=== PATIENT | female | born 1990 | race Caucasian/White ===

== ENCOUNTER → 2016-03-21 | Outpatient (CLI) | payer OTHER ==
--- NOTE | 2016-03-21 14:47 | US ---
EXAMINATION TYPE: US OB >= 14 wk fetus third trimester DATE OF EXAM: 03/21/2016 1:53 PM COMPARISON: First trimester ultrasound September 02, 2015. CLINICAL HISTORY: Large For Dates O36.63XO TECHNIQUE: Transabdominal (TA) GESTATIONAL AGE / DATING Physician Established: (35 weeks/1 days) EDC: 04/24/2016 Dates by LMP: unknown Dates by First Scan: (35 weeks/1 days) EDC: 04/24/2016 Dates by Current Scan: (36 weeks/1 days) EDC: 04/17/2016 SURVEY IUP: Single PLACENTA: Fundal PREVIA: No Previa DOLORES: 17.4cm CERVICAL LENGTH (transabdominal: norm > 3.0cm): 3.2cm BIOMETRY PRESENTATION: Vertex LIE: Longitudinal BPD: 8.9 cm 36 weeks / 1 days HC: 32.3 cm 36 weeks / 4 days AC: 32.2 cm 36 weeks / 1 days FL: 6.9 cm 35 weeks / 3 days ESTIMATED WEIGHT IN GRAMS: 2815 grams ESTIMATED WEIGHT IN LBS/OZS: 6 lbs. 3 oz. WEIGHT PERCENTAGE BASED ON ESTABLISHED DATES: 71 % HC/AC: 1.0 Normal FL/AC: 21 Normal HEART RATE: 133 bpm RHYTHM: Normal MATERNAL WALL MEASUREMENT: 4.6 cm from skin to anterior uterine wall (if exam limited due to body hab itus). TECHNOLOGIST IMPRESSION: Viable 36w1d fetus seen and appears wnl Amniotic fluid index is noted upper limits of normal. biometry measurements as above are within normal limits. There is no ultrasound evidence for placenta previa. Normal cephalad presentation to fetus is currently identified. IMPRESSION: As above.
== END | disposition home or self-care (01) ==
LOC: RADUSWWP 13:25
PROVIDERS: ATTEND Obstetrics & Gynecology
DX: O36.63X0 Maternal care for excessive fetal growth, third trimester, not applicable or unspecified (principal); Z3A.36 36 weeks gestation of pregnancy
CPT/HCPCS: 76805

== ENCOUNTER 2016-04-17 05:42 | Inpatient (IN) | payer OTHER ==
--- NOTE | 2016-04-13 13:06 | P.HPOB ---
History of Present Illness H&P Date: 04/13/16 Chief Complaint: Cesearan section and tubal ligation. This patient is a pleasant 26 yr female EDC 04/24/2016 EGA 39 weeks who presents to L&D for primary section and tubal ligation due to history of prior traumatic delivery. Patients last delivery was complicated by a clavicle fracture (9#9oz) and she has requested C/S for delivery. care has been uncomplicated. Review of Systems Constitutional: Denies chills, Denies fever Ears, nose, mouth and throat: Denies headache, Denies sore throat Respiratory: Denies cough Genitourinary: Reports Menstruation: Reports amenorrhea Musculoskeletal: Denies myalgias Integumentary: Denies pruritus, Denies rash Neurological: Denies numbness, Denies weakness Psychiatric: Denies anxiety, Denies depression Endocrine: Denies fatigue, Denies weight change Past Medical History Past Medical History: Thyroid Disorder Additional Past Medical History / Comment(s): migranes, anemia, low vitamin D, degenrative disc disease, migraines, 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 Past Anesthesia/Blood Transfusion Reactions: No Reported Reaction Past Psychological History: No Psychological Hx Reported Smoking Status: Current every day smoker Past Alcohol Use History: None Reported Past Drug Use History: None Reported - Past Family History Mother Family Medical History: GERD/Reflux, Hyperlipidemia, Hypertension, Thyroid Disorder Additional Family Medical History / Comment(s): anemia, hypothyroid, scoliosis, Father Family Medical History: Hypertension, Sleep Apnea/CPAP/BIPAP Medications and Allergies Home Medications Medication Instructions Recorded Confirmed Type Levothyroxine Sodium [Synthroid] 75 mcg PO DAILY 05/11/15 09/02/15 History Ferrous Gluconate 324 mg PO TID 09/02/15 09/02/15 History Allergies Allergy/AdvReac Type Severity Reaction Status Date / Time No Known Allergies Allergy Verified 09/02/15 18:47 Exam - OBG Physical Exam Abdomen: bowel sounds normal, no diffuse tenderness, no bruit present, no guarding noted, no hepatomegaly, no splenomegaly, no mass Vulva: both: normal Vagina: normal moisture, no discharge Cervix: Cervix in the office was closed. Cervix: no lesion, no discharge Uterus: enlarged (Fundal height is 43 cm.) Results labs: A positive, Rubella Low-Positive, HepB neg, RPR nonreactive, GBS was positive, Glucola was normal. Ultrasound have been normal. Assessment and Plan (1) Third trimester Narrative/Plan: This is a pleasant 26 yr female who is presenting for primary section for previous traumatic vaginal delivery. She is also requesting permanent sterilization. Plan is primary section and bilateral partial salpingectomy. She understands that a tubal ligation is permanent, has a failure rate of about 20-, and ~50% chance of ectopic or tubal if . She understands that surgery itself has risks: infection, bleeding, possible injury to bowel, bladder, vessels and/or other organs. All of her questions have been answered and a written consent is obtained. Status: Acute (2) delivery due to previous obstetrical trauma, delivered, current hospitalization Status: Acute (3) Family planning Status: Acute (4) Group B streptococcal carriage complicating Status: Acute
[2016-04-14 11:44] VITALS: BMI 46.9
[2016-04-17] MEDS ORDERED: LACTATED RINGERS 1,000 ML IV SCH (06:02)
[2016-04-17] MEDS ORDERED: CITRIC ACID-SODIUM CITRATE 15 ML CUP PO ONE (06:02)
[2016-04-17] MEDS ORDERED: LACTATED RINGERS 1,000 ML IV ONE (06:02)
[2016-04-17] MEDS ORDERED: ceFAZolin 3 GM in SODIUM CHLORIDE 0.9% 100 ML IVPB ONE (06:02)
[2016-04-17 06:29] LABS: Basophils % (A) 0 %; CH 28.1; CHCM 33.1; Eosinophils # (A) 0.1 k/uL (0-0.7); Eosinophils % (A) 1 %; HCT 31.8 % (34.0-46.0); HGB 10.5 gm/dL (11.4-16.0); Hypochromasia Slight; Luc # (Auto) 0.22; Luc % (Auto) 2; Lymphocytes % (A) 23 %; MCH 28.1 pg (25.0-35.0); MCHC 32.9 g/dL (31.0-37.0); MCV 85.4 fL (80.0-100.0); Mean Platelet Volume 7.5; Monocytes # (A) 0.4 k/uL (0-1.0); Monocytes % (A) 4 %; Neutrophils # (A) 6.3 k/uL (1.3-7.7); Neutrophils % (A) 70 %; RBC 3.73 m/uL (3.80-5.40); RDW 14.7 % (11.5-15.5); WBC (Perox) 9.61
[2016-04-17] MEDS ORDERED: ONDANSETRON 4 MG/2 ML VIAL ONE (07:44)
[2016-04-17] MEDS ORDERED: OXYTOCIN 10 UNIT/ML 1 ML VIAL IM ONE (07:44)
[2016-04-17] MEDS ORDERED: NALBUPHINE 10 MG/ML AMPUL ONE (07:44)
[2016-04-17] MEDS ORDERED: MORPHINE SULFATE (PF) 0.3 MG/0.3 ML SYR ONE (07:44)
[2016-04-17] MEDS ORDERED: KETOROLAC 30 MG/ML 1 ML VIAL ONE (07:44)
[2016-04-17] MEDS ORDERED: ZOLPIDEM 5 MG TAB PO PRN (08:41)
[2016-04-17] MEDS ORDERED: ONDANSETRON 4 MG/2 ML VIAL IVP PRN (08:41)
[2016-04-17] MEDS ORDERED: NALOXONE 0.4 MG/ML 1 ML VIAL IV PRN (08:41)
[2016-04-17] MEDS ORDERED: METOCLOPRAMIDE 5 MG/ML 2 ML VIAL IVP PRN (08:41)
[2016-04-17] MEDS ORDERED: OXYTOCIN 30 UNITS/500 ML NS 30 UNIT in SALINE 1 500ML.BAG IV SCH (08:41)
[2016-04-17] MEDS ORDERED: ACETAMINOPHEN TAB 325 MG TAB PO PRN (08:41)
[2016-04-17] MEDS ORDERED: diphenhydrAMINE 25 MG CAP PO PRN (08:41)
[2016-04-17] MEDS ORDERED: SIMETHICONE 80 MG CHEWABLE PO PRN (08:41)
[2016-04-17] MEDS ORDERED: MEASLES-MUMPS-RUBELLA VACC/PF 12,500 UNIT/0.5 ML VIAL SQ ONE (08:41)
[2016-04-17] MEDS ORDERED: Acetaminophen-Codeine 300-30mg TAB PO PRN (08:41)
--- NOTE | 2016-04-17 08:42 | P.OP ---
Date of Procedure: 04/17/16 Preoperative Diagnosis: #1: 39-0/7 week . #2: Previous traumatic vaginal delivery and desires . #3: Multi parity desires permanent sterilization. Postoperative Diagnosis: Same Procedure(s) Performed: Repeat low transverse section and bilateral partial salpingectomy Anesthesia: spinal Surgeon: Jaden Ruiz Manager Analysis #1: Franc Chance Estimated Blood Loss (ml): 600 Pathology: other (Placenta and bilateral fallopian tube segments) Condition: stable Disposition: floor Indications for Procedure: Please see dictated H&P for intimate details of this patient's admission. In brief summary this is a pleasant 26-year-old 7 para 3 female 39 weeks gestation who is presenting for requested section due to previous traumatic vaginal delivery. Patient is also requesting tubal ligation. Patient does understand that a tubal ligation is permanent, however there is a failure of approximately 20-25 per thousand procedures done. Patient also understands surgery itself has risks including risks of infection, bleeding, possible injury to bowel, bladder, vessels, and other organs. All the patient' s questions are answered and a written consent is obtained. Operative Findings: This was a vigorous viable male infant Apgars were 9 and 9 delivery time was 0807 hrs. Description of Procedure: This patient has a Howell catheter placed to straight drain. She is subsequently taken to the operating room where she is sat up and spinal anesthetic is administered without incident. With an adequate level of anesthesia she has abdominal prep and drape. Scalpels taken Pfannenstiel skin incision is then made. A second scalpel is taken down the fascia was scored with the scalpel. Fascial incision is extended bilaterally using Sapp scissors. Fascia is dissected sharply off the rectus muscles. The rectus muscles are and the peritoneum identified and entered sharply. Peritoneal incision extended superior and inferior without difficulty. The Surinder self-retaining retractor is then placed. Scalpel is taken low transverse uterine incision is then made. Using a hemostat I gently into the uterine cavity and there is a large amount of clear fluid. The infant's head is then guided through this incision. Mouth and nares are bulb suctioned. There is no evidence of a nuchal cord. With fundal pressure we then have deliver the anterior posterior shoulder and rest this 's body. This is a vigorous viable male Apgars are 9 and 9 delivery time was 0807 hrs. After delivery of the baby the umbilical cord is doubly clamped and cut appears to be trivascular. The placenta is manually extracted intact. Uterus is then externalized and the uterine incision demarcated with Miller clamps. Uterine incision is closed using 0 Vicryl running locked fashion in 2 layers. Excellent hemostasis is noted. I then turned my attention to the left fallopian tube and placing hemostat approximate 4 cm from the cornual insertion. Using Bovie cautery I make a small window in the mesial salpinx. Using a 2-0 silk I doubly ligate a piece of the tube on both sides. 1-2 cm segment tube was excised and handed off to pathology. Cauterization done of the tubal ends and good hemostasis is noted using a similar technique on the right side we have similar results. With this done excess fluid is removed from the pelvis. Uterus placed back into the abdomen. Parietal peritoneum was then closed using 0 Vicryl running fashion. The rectus muscles are reapproximated in 0 Vicryl interrupted fashion. Fascia is then closed using 0 PDS. Fascial incision is intact and hemostatic. Subcutaneous tissues reapproximated using a 3-0 Vicryl. Skin is and closed using angi. A sterile dressing is then applied. All counts are correct 3. There are no complications. Infant and mother are taken to the birthing suite in satisfactory condition.
[2016-04-17] MEDS: LACTATED RINGERS 1,000 ML IV SCH ×2 (09:49→17:27)
[2016-04-17] MEDS: SENNOSIDES-DOCUSATE SODIUM 1 EACH TAB PO SCH ×2 (09:50→23:23)
[2016-04-17] MEDS: diphenhydrAMINE 50 MG/ML 1 ML VIAL IVP PRN ×2 (11:38→17:32)
[2016-04-17] MEDS: KETOROLAC 30 MG/ML 1 ML VIAL IVP PRN (15:01)
[2016-04-18] MEDS: KETOROLAC 30 MG/ML 1 ML VIAL IVP PRN (00:25)
[2016-04-18] MEDS: SENNOSIDES-DOCUSATE SODIUM 1 EACH TAB PO SCH ×3 (00:34→19:49)
[2016-04-18] MEDS: IBUPROFEN 600 MG TAB PO PRN ×3 (00:34→19:49)
[2016-04-18] MEDS: LACTATED RINGERS 1,000 ML IV SCH (00:50)
--- NOTE | 2016-04-18 06:18 | P.PNOBGPC ---
Subjective - Subjective Patient reports: Reports appetite normal, Reports voiding normally, Reports pain well controlled, Reports ambulating normally : doing well Objective - Vital Signs Latest vital signs: Vital Signs Temp Pulse Resp BP Pulse Ox 04/18/16 04:00 98.8 F 87 16 103/61 98 04/18/16 00:00 98.5 F 88 18 93/41 98 04/17/16 19:34 98.4 F 95 18 117/54 98 04/17/16 17:01 98.6 F 108 H 16 99 04/17/16 15:00 98.6 F 81 16 101/45 04/17/16 10:35 96.4 F L 72 16 105/66 04/17/16 10:05 97.0 F L 77 16 113/66 99 04/17/16 09:35 81 16 101/59 04/17/16 09:20 74 16 96/55 97 04/17/16 09:05 97.0 F L 75 14 99/54 04/17/16 08:50 75 16 101/59 100 04/17/16 08:35 96.6 F L 80 16 96/55 100 04/17/16 06:20 95.9 F L 116 H 16 111/72 100 Intake and Output 04/17/16 04/17/16 04/18/16 14:59 22:59 06:59 Intake Total 200 500 Output Total 600 700 Balance -400 -200 Intake: IV 200 500 Lactated Ringers 1,000 ml 200 500 @ 125 mls/hr IV .Q8H MELO Rx#:[id number] Output: Urine 600 700 Straight 700 Other: # Bowel Movements 0 - Exam Lungs: bilateral: normal Chest: Normal S1, Normal S2 Extremities: Present: normal Abdomen: Present: normal appearance, soft. Absent: distention, tenderness Incision: Present: normal, dry, intact Uterus: Present: normal, firm - Labs Labs: Abnormal Lab Results - Last 24 Hours (Table) 04/17/16 Range/Units 06:17 RBC 3.73 L (3.80-5.40) m/uL Hgb 10.5 L (11.4-16.0) gm/dL Hct 31.8 L (34.0-46.0) % Assessment and Plan (1) Third trimester Narrative/Plan: Postoperative day #1. Patient is resting without complaints. Vital signs are stable she is afebrile. Her incision is intact and dry. Patient has had to be catheterized due to some urinary retention secondary to her Duramorph, otherwise without issues. Plan today is to advance to regular diet, encouraged patient ambulate, allow the patient to shower, and check a CBC. We will continue routine postoperative care. Current Visit: Yes Status: Acute Code(s): Z33.1 - STATE, INCIDENTAL SNOMED Code(s): 95659722 (2) delivery due to previous obstetrical trauma, delivered, current hospitalization Current Visit: Yes Status: Acute Code(s): O99.89 - OTH DISEASES AND CONDITIONS COMPL PREG/CHLDBRTH SNOMED Code(s): 237558438 (3) Family planning Current Visit: Yes Status: Acute Code(s): Z30.09 - ENCOUNTER FOR OTH GENERAL CNSL AND ADVICE ON CONTRACEPTION SNOMED Code(s): 89497574 (4) Group B streptococcal carriage complicating Current Visit: Yes Status: Acute Code(s): O99.820 - STREPTOCOCCUS B CARRIER STATE COMPLICATING SNOMED Code(s): 394296870122913
[2016-04-18 07:42] LABS: Basophils % (A) 1 %; CHCM 32.9; Eosinophils # (A) 0.1 k/uL (0-0.7); Eosinophils % (A) 1 %; HCT 26.4 % (34.0-46.0); HDW 3.19; Luc # (Auto) 0.14; Luc % (Auto) 2; Lymphocytes # (A) 1.6 k/uL (1.0-4.8); Lymphocytes % (A) 23 %; MCH 27.5 pg (25.0-35.0); MCHC 32.2 g/dL (31.0-37.0); MCV 85.6 fL (80.0-100.0); Mean Platelet Volume 8.1; Monocytes # (A) 0.3 k/uL (0-1.0); Monocytes % (A) 5 %; Neutrophils # (A) 4.7 k/uL (1.3-7.7); Neutrophils % (A) 68 %; RBC 3.08 m/uL (3.80-5.40); RDW 14.9 % (11.5-15.5); WBC 6.9 k/uL (3.8-10.6); WBC (Perox) 6.94
[2016-04-18 07:45] LABS: HGB 8.5 gm/dL (11.4-16.0)
[2016-04-18] MEDS: Acetaminophen-Codeine 300-30mg TAB PO PRN ×3 (08:02→23:34)
[2016-04-19] MEDS: IBUPROFEN 600 MG TAB PO PRN ×3 (03:41→18:22)
[2016-04-19] MEDS: Acetaminophen-Codeine 300-30mg TAB PO PRN ×3 (05:38→21:37)
--- NOTE | 2016-04-19 06:45 | P.PNOBGPC ---
Subjective - Subjective Patient reports: Reports appetite normal, Reports voiding normally, Reports pain well controlled, Reports ambulating normally : doing well Objective - Vital Signs Latest vital signs: Vital Signs Temp Pulse Resp BP Pulse Ox 04/19/16 00:00 97.9 F 93 18 106/60 04/18/16 20:00 98.1 F 90 18 105/77 97 04/18/16 08:10 97.8 F 81 18 99/58 100 Intake and Output 04/18/16 04/18/16 04/19/16 14:59 22:59 06:59 Output Total 800 300 Balance -800 -300 Output: Urine 800 300 Other: # Voids 1 1 2 # Bowel Movements 0 - Exam Lungs: bilateral: normal Chest: Normal S1, Normal S2 Extremities: Present: normal Abdomen: Present: normal appearance, soft. Absent: distention, tenderness Incision: Present: normal, dry, intact Uterus: Present: normal, firm - Labs Labs: Abnormal Lab Results - Last 24 Hours (Table) 04/18/16 Range/Units 07:07 RBC 3.08 L (3.80-5.40) m/uL Hgb 8.5 L D (11.4-16.0) gm/dL Hct 26.4 L (34.0-46.0) % Assessment and Plan (1) Third trimester Narrative/Plan: Postoperative day #2. Patient is resting without new complaints. Incision is intact and dry and she is having normal lochia. Postoperative hemoglobin was 8.5, but preoperative was 10.5. This is chronic anemia. Patient is tolerating regular diet, ambulating, and urinating without difficulty. My impression is a normal postoperative course. Plan is to continue routine postoperative care. I will resume her iron therapy. Current Visit: Yes Status: Acute Code(s): Z33.1 - STATE, INCIDENTAL SNOMED Code(s): 76301803 (2) delivery due to previous obstetrical trauma, delivered, current hospitalization Current Visit: Yes Status: Acute Code(s): O99.89 - OTH DISEASES AND CONDITIONS COMPL PREG/CHLDBRTH SNOMED Code(s): 320491133 (3) Family planning Current Visit: Yes Status: Acute Code(s): Z30.09 - ENCOUNTER FOR OTH GENERAL CNSL AND ADVICE ON CONTRACEPTION SNOMED Code(s): 92209232 (4) Group B streptococcal carriage complicating Current Visit: Yes Status: Acute Code(s): O99.820 - STREPTOCOCCUS B CARRIER STATE COMPLICATING SNOMED Code(s): 703218567239142
[2016-04-19] MEDS: SENNOSIDES-DOCUSATE SODIUM 1 EACH TAB PO SCH ×2 (07:29→20:05)
[2016-04-19] MEDS: IRON AG/C/B12/CA/SUC.ACID/STOM 1 EACH TAB PO SCH (11:39)
[2016-04-20] MEDS: IBUPROFEN 600 MG TAB PO PRN ×2 (01:17→08:16)
--- NOTE | 2016-04-20 06:04 | P.PNOBGPC ---
Subjective - Subjective Patient reports: Reports appetite normal, Reports voiding normally, Reports pain well controlled, Reports ambulating normally : doing well Objective - Vital Signs Latest vital signs: Vital Signs Temp Pulse Resp BP 04/20/16 00:00 98.0 F 78 14 94/70 04/19/16 16:00 98.1 F 98 16 126/74 04/19/16 08:00 98.5 F 93 16 104/63 - Exam Lungs: bilateral: normal Chest: Normal S1, Normal S2 Extremities: Present: normal Abdomen: Present: normal appearance, soft. Absent: distention, tenderness Incision: Present: normal, dry, intact Uterus: Present: normal, firm Assessment and Plan (1) Third trimester Narrative/Plan: Post operative day #3. Patient is resting without complaints. Vital signs are stable she's afebrile. Uterus is firm nontender and her incision is intact and dry. My impression normal post operative course. Plan is to continue routine postoperative care and discharge home later today. Current Visit: Yes Status: Acute Code(s): Z33.1 - STATE, INCIDENTAL SNOMED Code(s): 06170864 (2) delivery due to previous obstetrical trauma, delivered, current hospitalization Current Visit: Yes Status: Acute Code(s): O99.89 - OTH DISEASES AND CONDITIONS COMPL PREG/CHLDBRTH SNOMED Code(s): 105017764 (3) Family planning Current Visit: Yes Status: Acute Code(s): Z30.09 - ENCOUNTER FOR OTH GENERAL CNSL AND ADVICE ON CONTRACEPTION SNOMED Code(s): 46748300 (4) Group B streptococcal carriage complicating Current Visit: Yes Status: Acute Code(s): O99.820 - STREPTOCOCCUS B CARRIER STATE COMPLICATING SNOMED Code(s): 711867231904504
--- NOTE | 2016-04-20 06:10 | P.DS ---
Providers Date of admission: 04/17/16 05:42 Expected date of discharge: 04/20/16 Attending physician: Jaden Ruiz Primary care physician: Stated None - Discharge Diagnosis(es) (1) Third trimester Current Visit: Yes Status: Acute (2) delivery due to previous obstetrical trauma, delivered, current hospitalization Current Visit: Yes Status: Acute (3) Family planning Current Visit: Yes Status: Acute (4) Group B streptococcal carriage complicating Current Visit: Yes Status: Acute Hospital Course: Please see dictated H&P for intimate details of this patient's admission. Brief summary this pleasant 26-year-old 7 para 3 female 39 weeks gestation admitted to labor and delivery for elective section and tubal ligation. Patient goes above-named surgery and by postoperative 3 is doing well felt to be stable for discharge home follow up with me in 1 week. Procedures: Primary low transverse section and bilateral partial salpingectomy. Patient Condition at Discharge: Good Plan - Discharge Summary New Discharge Prescriptions: Acetaminophen-Codeine 300-30mg [Tylenol w/codeine #3] 1 - 2 each PO Q4HR PRN # 40 tab PRN Reason: Mild Pain Ibuprofen [Motrin] 600 mg PO Q6HR PRN #40 tab PRN Reason: Mild Pain Or Fever >= 100.5 Discharge Medication List Pediatric Multivit Comb #25/FA [Flintstones Multivit Chew Tab] 2 tab PO DAILY [History] Acetaminophen-Codeine 300-30mg [Tylenol w/codeine #3] 1 - 2 each PO Q4HR PRN # 40 tab 04/19/16 [Rx] Ibuprofen [Motrin] 600 mg PO Q6HR PRN #40 tab 04/19/16 [Rx] Follow up Appointment(s)/Referral(s): Jaden Ruiz MD [STAFF PHYSICIAN] - 1 Week (Patient also was to see me in 6 weeks for check.) Patient Instructions/Handouts: (DC) Activity/Diet/Wound Care/Special Instructions: No intercourse or anything per vagina for 6 weeks. No strenuous activity or heavy lifting for 6 weeks. Please call for any fever, chills, excessive vaginal bleeding, and/or abdominal pain. Discharge Disposition: HOME SELF-CARE
[2016-04-20] MEDS: SENNOSIDES-DOCUSATE SODIUM 1 EACH TAB PO SCH (08:11)
[2016-04-20] MEDS: IRON AG/C/B12/CA/SUC.ACID/STOM 1 EACH TAB PO SCH (08:15)
[2016-04-20 08:20] VITALS: BP 100/62; PULSE 86; RESP 16; TEMP 97.7
[2016-04-20] MEDS: Acetaminophen-Codeine 300-30mg TAB PO PRN (12:11)
== END 2016-04-20 14:20 | disposition home or self-care (01) | DRG 766 ==
LOC: 4FBP 05:42
PROVIDERS: ADMIT Obstetrics & Gynecology; ATTEND Obstetrics & Gynecology
PROC: 0UB70ZZ Excision of Bilateral Fallopian Tubes, Open Approach (ICD-10-PCS; 2016-04-17)
PROC: 10D00Z1 Extraction of Products of Conception, Low, Open Approach (ICD-10-PCS; principal; 2016-04-17 08:00)
DX: O99.824 Streptococcus B carrier state complicating childbirth (principal); E55.9 Vitamin D deficiency, unspecified; Z37.0 Single live birth; O99.02 Anemia complicating childbirth; O99.354 Diseases of the nervous system complicating childbirth; F17.200 Nicotine dependence, unspecified, uncomplicated; O99.334 Smoking (tobacco) complicating childbirth; D64.9 Anemia, unspecified; T50.995A Adverse effect of other drugs, medicaments and biological substances, initial encounter; O99.284 Endocrine, nutritional and metabolic diseases complicating childbirth; E07.9 Disorder of thyroid, unspecified; R33.9 Retention of urine, unspecified; O99.89 Other specified diseases and conditions complicating pregnancy, childbirth and the puerperium; Z3A.39 39 weeks gestation of pregnancy; Z82.49 Family history of ischemic heart disease and other diseases of the circulatory system; Y92.239 Unspecified place in hospital as the place of occurrence of the external cause
CPT/HCPCS: 85025; 86850; 86900; 86901; 88302; 88307; 90472; 90707

== ENCOUNTER → 2017-10-18 | Outpatient (CLI) | payer OTHER ==
--- NOTE | 2017-10-18 14:04 | MM ---
Reason for exam: clinical finding. Baseline mammogram. History: Family history of breast cancer in maternal grandmother at age 30 and breast cancer in mother at age 30. Physical Findings: Nurse did not find any significant physical abnormalities on exam. MG 3D Diag Mammo W/Cad GRACIELA Bilateral CC, MLO, and XCCL view(s) were taken. The breast tissue is almost entirely fat. There is no discrete abnormality including left upper outer quadrant. These results were verbally communicated with the patient and result sheet given to the patient on 10/18/17. ASSESSMENT: Benign, BI-RAD 2 RECOMMENDATION: Routine screening mammogram of both breasts at age 40.
== END | disposition home or self-care (01) ==
LOC: RADMAMWWP 12:38
PROVIDERS: ATTEND Family Medicine
DX: N63.20 Unspecified lump in the left breast, unspecified quadrant (principal)
CPT/HCPCS: 77066; G0279; 77062

== ENCOUNTER → 2017-12-25 | Outpatient (CLI) | payer OTHER ==
--- NOTE | 2017-12-25 11:48 | US ---
EXAMINATION TYPE: US transvaginal DATE OF EXAM: 12/25/2017 COMPARISON: CT, US CLINICAL HISTORY: n92.1Excessive and frequent menstruation with irre. Pt states abnormal vaginal blee ding, has been bleeding x 5 weeks, passing large clots TECHNIQUE: Transvaginal (TV). Transvaginal sonographic images of the pelvis were acquired. Date of LMP: Pt bleeding x 5 weeks EXAM MEASUREMENTS: Uterus: 7.4 x 4.5 x 5.7 cm Endometrial Stripe: 0.9 cm Right Ovary: 3.7 x 2.1 x 1.6 cm Left Ovary: 3.1 x 1.8 x 2.4 cm 1. Uterus: Retroverted Appeared wnl 2. Endometrium: Appeared wnl 3. Right Ovary: wnl, follicles 4. Left Ovary: wnl, follicles 5. Bilateral Adnexa: wnl 6. Posterior cul-de-sac: wnl No abnormality visualized to account for pt's symptoms IMPRESSION: 1. No acute process. Endometrial stripe measures 9 mm correlate with phase of the patient's menstrual 7.
== END | disposition home or self-care (01) ==
LOC: RADUSWWP 11:00
PROVIDERS: ATTEND Obstetrics & Gynecology
DX: N92.1 Excessive and frequent menstruation with irregular cycle (principal)
CPT/HCPCS: 76830

== ENCOUNTER 2019-12-19 00:57 | Emergency (ER) | payer OTHER ==
[2019-12-19 01:12] VITALS: TEMP 98
--- NOTE | 2019-12-19 01:32 | ED ---
Chest Pain HPI - General Chief Complaint: Chest Pain Stated Complaint: Chest Pain Time Seen by Provider: 12/19/19 01:15 Source: patient Mode of arrival: ambulatory Limitations: no limitations - History of Present Illness Initial Comments: his patient is a 29-year-old woman who presents to be evaluated for left-sided chest pain, palpitations, and anxiety. She states this ON ACUTELY TONIGHT AFTER SHE HAD AN ENERGY DRINK. MD Complaint: chest pain -: hour(s) Onset: during rest Pain Location: left chest Pain Radiation: none Severity: mild Quality: heaviness Consistency: constant Improves With: nothing Worsens With: nothing Other Symptoms: palpitations - Related Data Home Medications Medication Instructions Recorded Confirmed Pedi Multivit No.25/Folic Acid 2 tab PO DAILY 04/14/16 04/17/16 [Flintstones Multivit Chew Tab] Previous Rx's Medication Instructions Recorded Acetaminophen-Codeine 300-30mg 1 - 2 each PO Q4HR PRN #40 tab 04/19/16 [Tylenol w/codeine #3] Ibuprofen [Motrin] 600 mg PO Q6HR PRN #40 tab 04/19/16 Allergies Allergy/AdvReac Type Severity Reaction Status Date / Time No Known Allergies Allergy Verified 12/19/19 01:12 Review of Systems ROS Statement: Those systems with pertinent positive or pertinent negative responses have been documented in the HPI. ROS Other: All systems not noted in ROS Statement are negative. Constitutional: Denies: fever, chills Respiratory: Denies: cough, dyspnea Cardiovascular: Reports: chest pain, palpitations. Denies: dyspnea on exertion, orthopnea, edema, syncope Gastrointestinal: Denies: abdominal pain, nausea, vomiting Genitourinary: Denies: dysuria, hematuria Musculoskeletal: Denies: back pain Skin: Denies: rash Neurological: Denies: headache, weakness Psychiatric: Reports: anxiety EKG Findings - EKG Comments: EKG Findings:: similar to the comparison ECG. 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 Past Anesthesia/Blood Transfusion Reactions: No Reported Reaction Past Psychological History: No Psychological Hx Reported Smoking Status: Current every day smoker Past Alcohol Use History: None Reported Past Drug Use History: None Reported - Past Family History Mother Family Medical History: Deep Vein Thrombosis (DVT), GERD/Reflux, Hypertension, Thyroid Disorder Additional Family Medical History / Comment(s): anemia, hypothyroid Father Family Medical History: Hypertension, Sleep Apnea/CPAP/BIPAP General Exam Limitations: no limitations General appearance: alert, in no apparent distress, anxious Head exam: Present: atraumatic, normocephalic Eye exam: Present: normal appearance. Absent: scleral icterus, conjunctival injection ENT exam: Present: normal oropharynx Respiratory exam: Present: normal lung sounds bilaterally. Absent: respiratory distress, wheezes, rales, rhonchi, stridor Cardiovascular Exam: Present: regular rate, normal rhythm, normal heart sounds. Absent: systolic murmur, diastolic murmur, rubs, gallop GI/Abdominal exam: Present: soft. Absent: distended, tenderness, guarding, rebound, rigid, mass Extremities exam: Present: normal inspection, normal capillary refill. Absent: pedal edema, calf tenderness Back exam: Present: normal inspection. Absent: CVA tenderness (R), CVA tenderness (L) Neurological exam: Present: alert Skin exam: Present: warm, dry, intact, normal color. Absent: rash Course Vital Signs 12/19/19 12/19/19 01:09 01:27 Temperature 98 F Pulse Rate 112 H Pulse Rate [ 98 Java Web User Interface Developer ] Respiratory 18 Rate Blood Pressure 128/77 O2 Sat by Pulse 100 Oximetry Disposition Clinical Impression: Palpitations Disposition: HOME SELF-CARE Condition: Good Instructions (If sedation given, give patient instructions): Heart Palpitations (ED) Is patient prescribed a controlled substance at d/c from ED?: No Referrals: Miya Wilson MD [Primary Care Provider] - 1-2 days
--- NOTE | 2019-12-19 02:03 | XR ---
EXAM: XR Chest, 2 Views CLINICAL HISTORY: Chest pain TECHNIQUE: Frontal and lateral views of the chest. COMPARISON: No relevant prior studies available. FINDINGS: Lungs: Unremarkable. No infiltration, atelectasis or mass density. Pleural space: Unremarkable. No pneumothorax. No pleural fluid. Heart: Unremarkable. No cardiomegaly. Mediastinum: Unremarkable. Bones/joints: Unremarkable. No acute abnormalities. IMPRESSION: Negative chest x-rays.
[2019-12-19 02:44] VITALS: BP 96/71; PULSE 87; RESP 19
== END 2019-12-19 02:44 | disposition home or self-care (01) ==
LOC: EC 00:57
DX: R00.2 Palpitations (principal); R07.9 Chest pain, unspecified; F17.200 Nicotine dependence, unspecified, uncomplicated
CPT/HCPCS: 71046; 93005; 99285

== ENCOUNTER → 2020-03-31 | Outpatient (CLI) | payer OTHER ==
--- NOTE | 2020-04-26 11:47 | P.HOLTER ---
24 Hour Holter monitor note: Patient wore a Holter monitor for 24 hrs from 03/31/2020 until 04/01/2020. Findings: Patient's baseline heart rate was normal sinus rhythm. There were no signficant atrial fibrillation, atrial flutter, or ventricular tachycardia episodes. There were no significant pauses greater than 2 seconds. Patient's minimum heart rate was 64. Patient's maximum heart rate was 144. Patient's average heart rate was 93. There were rare PACs and otherwise no significant ectopy. No diary was submitted to correlate symptoms. Conclusions: Normal 24-hour Holter monitor with only PACs noted. No symptoms reported to correlate symptomatology.
== END | disposition home or self-care (01) ==
LOC: RADECHMAIN 12:16
PROVIDERS: ATTEND Family Medicine
DX: R00.2 Palpitations (principal); R53.83 Other fatigue
CPT/HCPCS: 93225; 93226

== ENCOUNTER 2021-04-23 06:29 | Emergency (ER) | payer OTHER ==
[2021-04-23 06:43] VITALS: TEMP 98.1
[2021-04-23] MEDS ORDERED: ONDANSETRON 4 MG/2 ML VIAL IVP STA ×2 (07:21→09:06)
[2021-04-23] MEDS ORDERED: PANTOPRAZOLE 40 MG/10 ML VIAL IVP STA (07:24)
--- NOTE | 2021-04-23 07:27 | ED ---
General Adult HPI - General Chief complaint: Abdominal Pain Stated complaint: Abd Pain, Vomiting Time Seen by Provider: 04/23/21 07:00 Source: patient, RN notes reviewed, old records reviewed Mode of arrival: ambulatory Limitations: no limitations - History of Present Illness Initial comments: this is a 31-year-old female who presents emergency Department stating at 4:30 is when she woke up with mid abdominal pain was up to her epigastric area. I asked if he went into her chest she said no it went up to the chest. Patient denies any chest pain. Patient denies any shortness of breath. Patient states she's not vomiting any food she stated she did vomit once. There was some bile and some small amount of blood. Patient states she's had cholecystectomy and a tubal ligation in the past. Patient denies any fever chills. Patient states the pain continues. Patient denies any history of pancreatitis. Patient states she's notably drinker. - Related Data Home Medications Medication Instructions Recorded Confirmed Pedi Multivit No.25/Folic Acid 2 tab PO DAILY 04/14/16 04/17/16 [Flintstones Multivit Chew Tab] Previous Rx's Medication Instructions Recorded Acetaminophen-Codeine 300-30mg 1 - 2 each PO Q4HR PRN #40 tab 04/19/16 [Tylenol w/codeine #3] Ibuprofen [Motrin] 600 mg PO Q6HR PRN #40 tab 04/19/16 Pantoprazole [Protonix] 40 mg PO DAILY #10 tab 04/23/21 Allergies Allergy/AdvReac Type Severity Reaction Status Date / Time codeine Allergy Rash/Hives Verified 04/23/21 06:43 Review of Systems ROS Statement: Those systems with pertinent positive or pertinent negative responses have been documented in the HPI. ROS Other: All systems not noted in ROS Statement are negative. 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 Past Anesthesia/Blood Transfusion Reactions: No Reported Reaction Past Psychological History: No Psychological Hx Reported Smoking Status: Former smoker Past Alcohol Use History: None Reported Past Drug Use History: None Reported - Past Family History Mother Family Medical History: Deep Vein Thrombosis (DVT), GERD/Reflux, Hypertension, Thyroid Disorder Additional Family Medical History / Comment(s): anemia, hypothyroid Father Family Medical History: Hypertension, Sleep Apnea/CPAP/BIPAP General Exam - General Exam Comments Initial Comments: GENERAL: Patient is well-developed and well-nourished. Patient is nontoxic and well- hydrated and is in mild distress. ENT: Neck is soft and supple. No significant lymphadenopathy is noted. Oropharynx is clear. Moist mucous membranes. Neck has full range of motion without eliciting any pain. EYES: The sclera were anicteric and conjunctiva were pink and moist. Extraocular movements were intact and pupils were equal round and reactive to light. Eyelids were unremarkable. PULMONARY: Unlabored respirations. Good breath sounds bilaterally. No audible rales rhonchi or wheezing was noted. CARDIOVASCULAR: There is a regular rate and rhythm without any murmurs gallops or rubs. ABDOMEN: Patient is mildly tender in the epigastric region SKIN: Skin is clear with no lesions or rashes and otherwise unremarkable. NEUROLOGIC: Patient is alert and oriented x3. Cranial nerves II through XII are grossly intact. Motor and sensory are also intact. Normal speech, volume and content. Symmetrical smile. MUSCULOSKELETAL: Normal extremities with adequate strength and full range of motion. LYMPHATICS: No significant lymphadenopathy is noted PSYCHIATRIC: Normal psychiatric evaluation. Limitations: no limitations Course Vital Signs 04/23/21 04/23/21 06:39 10:00 Temperature 98.1 F Pulse Rate 108 H 87 Respiratory 22 16 Rate Blood Pressure 117/78 93/54 O2 Sat by Pulse 98 96 Oximetry Medical Decision Making - Medical Decision Making patient had no episodes of vomiting in the emergency department. Patient remained stable sleeping most of the time the emergency department. Patient was sent home on Protonix she was given one dose of the emergency department IV. - Lab Data Result diagrams: 04/23/21 07:26 04/23/21 07:26 Lab Results 04/23/21 04/23/21 04/23/21 Range/Units 07:26 07:26 10:03 WBC 11.3 H (3.8-10.6) k/uL RBC 4.42 (3.80-5.40) m/uL Hgb 12.6 (11.4-16.0) gm/dL Hct 38.4 (34.0-46.0) % MCV 86.9 (80.0-100.0) fL MCH 28.6 (25.0-35.0) pg MCHC 33.0 (31.0-37.0) g/dL RDW 14.0 (11.5-15.5) % Plt Count 259 (150-450) k/uL MPV 7.1 Neutrophils % 86 % Lymphocytes % 7 % Monocytes % 5 % Eosinophils % 2 % Basophils % 0 % Neutrophils # 9.7 H (1.3-7.7) k/uL Lymphocytes # 0.7 L (1.0-4.8) k/uL Monocytes # 0.6 (0-1.0) k/uL Eosinophils # 0.2 (0-0.7) k/uL Basophils # 0.0 (0-0.2) k/uL Sodium 140 (137-145) mmol/L Potassium 4.1 (3.5-5.1) mmol/L Chloride 109 H (98-107) mmol/L Carbon Dioxide 21 L (22-30) mmol/L Anion Gap 10 mmol/L BUN 12 (7-17) mg/dL Creatinine 0.79 (0.52-1.04) mg/dL Est GFR (CKD-EPI)AfAm >90 (>60 ml/min/1.73 sqM) Est GFR (CKD-EPI)NonAf >90 (>60 ml/min/1.73 sqM) Glucose 99 (74-99) mg/dL Calcium 8.9 (8.4-10.2) mg/dL Total Bilirubin 0.4 (0.2-1.3) mg/dL AST 21 (14-36) U/L ALT 15 (4-34) U/L Alkaline Phosphatase 50 (38-126) U/L Total Protein 7.8 (6.3-8.2) g/dL Albumin 4.4 (3.5-5.0) g/dL Amylase 41 (30-110) U/L Lipase 107 (23-300) U/L Urine Color Yellow Urine Appearance Cloudy H (Clear) Urine pH 5.5 (5.0-8.0) Ur Specific [place] 1.025 (1.001-1.035) Urine Protein Trace H (Negative) Urine Glucose (UA) Negative (Negative) Urine Ketones Negative (Negative) Urine Blood Negative (Negative) Urine Nitrite Negative (Negative) Urine Bilirubin Negative (Negative) Urine Urobilinogen <2.0 (<2.0) mg/dL Ur Leukocyte Esterase Large H (Negative) Urine WBC 6 H (0-5) /hpf Ur Squamous Epith Cells 8 H (0-4) /hpf Amorphous Sediment Few H (None) /hpf Urine Bacteria Rare H (None) /hpf Urine Mucus Occasional H (None) /hpf Disposition Clinical Impression: Abdominal pain, Hematemesis Disposition: HOME SELF-CARE Instructions (If sedation given, give patient instructions): Abdominal Pain (ED) Prescriptions: Pantoprazole [Protonix] 40 mg PO DAILY #10 tab Is patient prescribed a controlled substance at d/c from ED?: No Referrals: Miya Wilson MD [Primary Care Provider] - 1-2 days Time of Disposition: 10:49
[2021-04-23 07:33] LABS: Basophils % (A) 0 %; Eosinophils # (A) 0.2 k/uL (0-0.7); Eosinophils % (A) 2 %; HCT 38.4 % (34.0-46.0); HGB 12.6 gm/dL (11.4-16.0); Lymphocytes # (A) 0.7 k/uL (1.0-4.8); Lymphocytes % (A) 7 %; MCH 28.6 pg (25.0-35.0); MCV 86.9 fL (80.0-100.0); Mean Platelet Volume 7.1; Monocytes # (A) 0.6 k/uL (0-1.0); Monocytes % (A) 5 %; Neutrophils # (A) 9.7 k/uL (1.3-7.7); Neutrophils % (A) 86 %; Platelet Count 259 k/uL (150-450); RBC 4.42 m/uL (3.80-5.40); WBC 11.3 k/uL (3.8-10.6)
[2021-04-23 07:44] LABS: ALT 15 U/L (4-34); AST 21 U/L (14-36); African American GFR (CKD) >90 (>60 ml/min/1.73 sqM); Albumin 4.4 g/dL (3.5-5.0); Alkaline Phosphatase 50 U/L (38-126); Amylase 41 U/L (30-110); Anion Gap 10 mmol/L; Blood Urea Nitrogen 12 mg/dL (7-17); Calcium 8.9 mg/dL (8.4-10.2); Carbon Dioxide 21 mmol/L (22-30); Chloride 109 mmol/L (98-107); Glucose 99 mg/dL (74-99); Lipase 107 U/L (23-300); Non-African American GFR(CKD) >90 (>60 ml/min/1.73 sqM); Potassium 4.1 mmol/L (3.5-5.1); Sodium 140 mmol/L (137-145); Total Bilirubin 0.4 mg/dL (0.2-1.3); Total Protein 7.8 g/dL (6.3-8.2)
--- NOTE | 2021-04-23 08:13 | XR ---
EXAMINATION TYPE: XR abdomen complete w decub DATE OF EXAM: 04/23/2021 COMPARISON: None HISTORY: Abdominal pain. TECHNIQUE: Supine, upright, and left side down lateral decubitus views of the abdomen are obtained. FINDINGS: The visualized lung bases are clear and there is no free air beneath the diaphragm. There is gas scattered throughout the colon and there are air-fluid levels within the right: The left lateral view. There is a mildly prominent loop of bowel within the central abdomen uncertain whether this represents mildly prominent small bowel or sigmoid colon. The possibility of an early or partia l small bowel obstruction is not excluded. There are no suspicious abdominal or pelvic calcifications. The osseous structures are intact. There post surgical changes of cholecystectomy. IMPRESSION: Cannot exclude early or partial small bowel obstruction. There is no free intraperitoneal air. Prior cholecystectomy.
[2021-04-23 10:35] LABS: Amorphous Sediment,Urine Few /hpf; Appearance,Urine Cloudy (Clear); Bacteria,Urine Rare /hpf; Bilirubin,Urine Negative (Negative); Blood,Urine Negative (Negative); Color,Urine Yellow; Glucose,Urine (UA) Negative (Negative); Ketones,Urine Negative (Negative); Leukocyte Esterase,Urine Large (Negative); Mucus,Urine Occasional /hpf; Nitrite,Urine Negative (Negative); PH, Urine 5.5 (5.0-8.0); Protein,Urine Trace (Negative); Specific Gravity,Urine 1.025 (1.001-1.035); Squamous Epithelial Cell,Urine 8 /hpf (0-4); Urobilinogen,Urine <2.0 mg/dL (<2.0); WBC,Urine 6 /hpf (0-5)
[2021-04-23 10:47] VITALS: BP 93/54; PULSE 87; RESP 16
== END 2021-04-23 11:05 | disposition home or self-care (01) ==
LOC: EC 06:29
DX: R10.9 Unspecified abdominal pain (principal); K92.0 Hematemesis; Z87.891 Personal history of nicotine dependence; Z90.49 Acquired absence of other specified parts of digestive tract; Z88.5 Allergy status to narcotic agent
CPT/HCPCS: 36415; 80053; 82150; 83690; 85025; 81001; 74021; 99284; 96374; 96376; 96375; J2405; C9113

== ENCOUNTER 2021-09-25 22:41 | Emergency (ER) | payer OTHER ==
[2021-09-25] MEDS ORDERED: SODIUM CHLORIDE 0.9% 2,000 ML IV STA (23:57)
[2021-09-25] MEDS ORDERED: KETOROLAC 15 MG/ML 1 ML VIAL IVP STA (23:57)
[2021-09-25] MEDS ORDERED: ACETAMINOPHEN TAB 500 MG TAB PO STA (23:58)
--- NOTE | 2021-09-26 00:16 | ED ---
General Adult HPI - General Chief complaint: Upper Respiratory Infection Stated complaint: Kidney Pain Time Seen by Provider: 09/25/21 23:10 Source: patient, RN notes reviewed Mode of arrival: ambulatory Limitations: no limitations - History of Present Illness Initial comments: Patient presents to the right arm was shaking chills, back pain, nausea, sore throat and cough. Patient states that going on for a few days. Patient states most of her pain is in her back. Patient denying any abdominal pain. Patient states she does have a history of recurrent urinary tract infections. No immunosuppression. No productive cough. No hemoptysis. No nausea or vomiting. Change in bowel movements. Patient did have a T-max greater than 102F at home. no changes in vision or hearing, no ear pain, sinus pain, difficulty with speec h, no neck pain, no chest pain or shortness of breath, no abdominal pain, no nausea or vomiting, no changes in urination or bowel movements, no numbness or tingling, no extremity pain, no skin rashes or lesions. Past medical, surgical, social, and family history reviewed. - Related Data Home Medications Medication Instructions Recorded Confirmed Pedi Multivit No.25/Folic Acid 2 tab PO DAILY 04/14/16 04/17/16 [Flintstones Multivit Chew Tab] Previous Rx's Medication Instructions Recorded Acetaminophen-Codeine 300-30mg 1 - 2 each PO Q4HR PRN #40 tab 04/19/16 [Tylenol w/codeine #3] Ibuprofen [Motrin] 600 mg PO Q6HR PRN #40 tab 04/19/16 Pantoprazole [Protonix] 40 mg PO DAILY #10 tab 04/23/21 Allergies Allergy/AdvReac Type Severity Reaction Status Date / Time codeine Allergy Rash/Hives Verified 09/25/21 23:08 Review of Systems ROS Statement: Those systems with pertinent positive or pertinent negative responses have been documented in the HPI. ROS Other: All systems not noted in ROS Statement are negative. 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 Past Anesthesia/Blood Transfusion Reactions: No Reported Reaction Past Psychological History: No Psychological Hx Reported Smoking Status: Former smoker Past Alcohol Use History: None Reported Past Drug Use History: None Reported - Past Family History Mother Family Medical History: Deep Vein Thrombosis (DVT), GERD/Reflux, Hypertension, Thyroid Disorder Additional Family Medical History / Comment(s): anemia, hypothyroid Father Family Medical History: Hypertension, Sleep Apnea/CPAP/BIPAP General Exam - General Exam Comments Initial Comments: Appears to have some Reiger's at the time I'm assessing her. However vital signs are within the normal limits. Patient appears to have adequate peripheral perfusion with capillary refill less than 2 seconds and no mottling. Moist mucous membranes. Limitations: no limitations General appearance: alert, in no apparent distress Head exam: Present: atraumatic, normocephalic, normal inspection Eye exam: Present: normal appearance, PERRL, EOMI. Absent: scleral icterus, conjunctival injection, periorbital swelling ENT exam: Present: normal exam, normal oropharynx, mucous membranes dry, mucous membranes moist, TM's normal bilaterally, normal external ear exam Expanded Mouth exam: Present: normal external inspection, tongue normal. Absent: drooling, trismus, muffled voice, tongue elevation, laceration Teeth exam: Present: normal inspection. Absent: dental caries Throat exam: normal inspection. negative: tonsillar erythema, tonsillomegaly, tonsillar exudate, R peritonsillar mass, L peritonsillar mass Neck exam: Present: normal inspection, full ROM. Absent: tenderness, meningismus, lymphadenopathy Respiratory exam: Present: normal lung sounds bilaterally. Absent: respiratory distress, wheezes, rales, rhonchi, stridor Cardiovascular Exam: Present: regular rate, normal rhythm, normal heart sounds. Absent: systolic murmur, diastolic murmur, rubs, gallop, clicks GI/Abdominal exam: Present: soft, normal bowel sounds. Absent: distended, tenderness, guarding, rebound, rigid External exam: Present: other (Examination deferred by patient) Extremities exam: Present: normal inspection, full ROM, normal capillary refill. Absent: tenderness, pedal edema, joint swelling, calf tenderness Back exam: Present: normal inspection, full ROM, CVA tenderness (R), CVA tenderness (L). Absent: tenderness, muscle spasm, rash noted Neurological exam: Present: alert, oriented X3, CN II-XII intact Psychiatric exam: Present: normal affect, normal mood Skin exam: Present: warm, dry, intact, normal color. Absent: rash Course Vital Signs 09/25/21 09/26/21 09/26/21 23:06 02:38 03:00 Temperature 98.7 F 98.6 F Pulse Rate 95 102 H 101 H Respiratory 18 16 18 Rate Blood Pressure 121/62 114/73 104/57 O2 Sat by Pulse 100 98 98 Oximetry - Reevaluation(s) Reevaluation #1: 09/26/21 03:22 Medical record is reviewed Symptoms are improved here in the emergency department Patient is informed of results and questions answered Patient in no distress Medical Decision Making - Medical Decision Making Given the patient's symptomology, pyelonephritis is within the differential. Does not appear to be consistent with ureteral colic as there is no flank pain radiating around to the front. Patient has had shaking chills and a cough. Viral syndrome also within the differential. [address] Patient previo usly has had a tubal ligation. We'll work the patient up for infectious etiology and plan for reevaluation. Note that the patient has no abdominal tenderness. Rash actually tested negative for COVID-19. Patient's computed tomography scan was negative for evidence of kidney pathology, there was no ureteral stone. Patient's urinalysis did not appear to be consistent with urinary tract infection. Patient's influenza A and streptococcal testing were pending. However the patient did not want to wait for this. Patient symptomology consistent with viral syndrome. Antipyretics. Patient concurs with this treatment plan. We did discuss the possibly of false-negative COVID-19 testing. Patient did have a mild elevation of the white blood cell count which was nonspecific. Patient denied any possibility of sexually transmitted disease, no vaginal discharge. Deferring the pelvic examination. There was a small amount of fluid seen on computed tomography scan which may be physiologic. The case was discussed in detail with ED attending physician. Presentation, findings, treatment plan discussed in detail. Patient was told to return to the ER for any signs or symptoms worsen. Told to return immediately if any other problems arise. All questions answered. Treatment plan discussed. Patient in agreement Every effort has been made to ensure accuracy of this dictation. However, due to the limitations of electronic medical records and dictation devices, errors in charting still occur. Snow Maker Dr. Smith - Lab Data Result diagrams: 09/26/21 02:19 09/26/21 02:19 Lab Results 09/25/21 09/26/21 09/26/21 Range/Units 23:09 00:04 02:19 WBC 12.4 H (3.8-10.6) k/uL RBC 4.39 (3.80-5.40) m/uL Hgb 11.7 (11.4-16.0) gm/dL Hct 36.6 (34.0-46.0) % MCV 83.5 (80.0-100.0) fL MCH 26.7 (25.0-35.0) pg MCHC 32.0 (31.0-37.0) g/dL RDW 14.9 (11.5-15.5) % Plt Count 299 (150-450) k/uL MPV 7.2 Neutrophils % 82 % Lymphocytes % 12 % Monocytes % 4 % Eosinophils % 1 % Basophils % 0 % Neutrophils # 10.1 H (1.3-7.7) k/uL Lymphocytes # 1.5 (1.0-4.8) k/uL Monocytes # 0.5 (0-1.0) k/uL Eosinophils # 0.1 (0-0.7) k/uL Basophils # 0.0 (0-0.2) k/uL Hypochromasia Slight Sodium (137-145) mmol/L Potassium (3.5-5.1) mmol/L Chloride (98-107) mmol/L Carbon Dioxide (22-30) mmol/L Anion Gap mmol/L BUN (7-17) mg/dL Creatinine (0.52-1.04) mg/dL Est GFR (CKD-EPI)AfAm (>60 ml/min/1.73 sqM) Est GFR (CKD-EPI)NonAf (>60 ml/min/1.73 sqM) Glucose (74-99) mg/dL Plasma Lactic Acid Rai (0.7-2.0) mmol/L Calcium (8.4-10.2) mg/dL Total Bilirubin (0.2-1.3) mg/dL AST (14-36) U/L ALT (4-34) U/L Alkaline Phosphatase (38-126) U/L Total Protein (6.3-8.2) g/dL Albumin (3.5-5.0) g/dL Urine Color Light Yellow Urine Appearance Clear (Clear) Urine pH 6.0 (5.0-8.0) Ur Specific [place] 1.022 (1.001-1.035) Urine Protein Negative (Negative) Urine Glucose (UA) Negative (Negative) Urine Ketones Negative (Negative) Urine Blood Negative (Negative) Urine Nitrite Negative (Negative) Urine Bilirubin Negative (Negative) Urine Urobilinogen <2.0 (<2.0) mg/dL Ur Leukocyte Esterase Small H (Negative) Urine RBC 3 (0-5) /hpf Urine WBC 3 (0-5) /hpf Ur Squamous Epith Cells 4 (0-4) /hpf Amorphous Sediment Rare H (None) /hpf Urine Mucus Rare H (None) /hpf Coronavirus (PCR) Not Detected (Not Detectd) Influenza Type A RNA (Not Detectd) Influenza Type B (PCR) (Not Detectd) 09/26/21 09/26/21 09/26/21 Range/Units 02:19 02:19 02:38 WBC (3.8-10.6) k/uL RBC (3.80-5.40) m/uL Hgb (11.4-16.0) gm/dL Hct (34.0-46.0) % MCV (80.0-100.0) fL MCH (25.0-35.0) pg MCHC (31.0-37.0) g/dL RDW (11.5-15.5) % Plt Count (150-450) k/uL MPV Neutrophils % % Lymphocytes % % Monocytes % % Eosinophils % % Basophils % % Neutrophils # (1.3-7.7) k/uL Lymphocytes # (1.0-4.8) k/uL Monocytes # (0-1.0) k/uL Eosinophils # (0-0.7) k/uL Basophils # (0-0.2) k/uL Hypochromasia Sodium 136 L (137-145) mmol/L Potassium 4.9 (3.5-5.1) mmol/L Chloride 103 (98-107) mmol/L Carbon Dioxide 19 L (22-30) mmol/L Anion Gap 14 mmol/L BUN 16 (7-17) mg/dL Creatinine 0.69 (0.52-1.04) mg/dL Est GFR (CKD-EPI)AfAm >90 (>60 ml/min/1.73 sqM) Est GFR (CKD-EPI)NonAf >90 (>60 ml/min/1.73 sqM) Glucose 96 (74-99) mg/dL Plasma Lactic Acid Rai 1.0 (0.7-2.0) mmol/L Calcium 9.4 (8.4-10.2) mg/dL Total Bilirubin 0.4 (0.2-1.3) mg/dL AST 25 (14-36) U/L ALT 18 (4-34) U/L Alkaline Phosphatase 68 (38-126) U/L Total Protein 8.0 (6.3-8.2) g/dL Albumin 4.8 (3.5-5.0) g/dL Urine Color Urine Appearance (Clear) Urine pH (5.0-8.0) Ur Specific [place] (1.001-1.035) Urine Protein (Negative) Urine Glucose (UA) (Negative) Urine Ketones (Negative) Urine Blood (Negative) Urine Nitrite (Negative) Urine Bilirubin (Negative) Urine Urobilinogen (<2.0) mg/dL Ur Leukocyte Esterase (Negative) Urine RBC (0-5) /hpf Urine WBC (0-5) /hpf Ur Squamous Epith Cells (0-4) /hpf Amorphous Sediment (None) /hpf Urine Mucus (None) /hpf Coronavirus (PCR) (Not Detectd) Influenza Type A RNA Not Detected (Not Detectd) Influenza Type B (PCR) Not Detected (Not Detectd) - Radiology Data Radiology results: report reviewed, image reviewed Disposition Clinical Impression: Acute viral syndrome Disposition: HOME SELF-CARE Condition: Good Instructions (If sedation given, give patient instructions): Viral Syndrome (ED) Additional Instructions: Alternate acetaminophen and ibuprofen for fever control. Follow-up with your regular physician within 48 hours for recheck. Return immediately to the emergency department if any symptoms worsen. Is patient prescribed a controlled substance at d/c from ED?: No Referrals: Miya Wilson MD [Primary Care Provider] - 1-2 days Time of Disposition: 03:25
--- NOTE | 2021-09-26 00:39 | XR ---
EXAMINATION TYPE: XR chest 2V DATE OF EXAM: 09/26/2021 COMPARISON: 12/19/2019 HISTORY: Cough TECHNIQUE: FINDINGS: Heart and mediastinum are normal. Lungs are clear. Diaphragm is normal. Bony thorax appears normal. IMPRESSION: Normal chest. No change.
[2021-09-26 00:46] LABS: Amorphous Sediment,Urine Rare /hpf; Appearance,Urine Clear (Clear); Bilirubin,Urine Negative (Negative); Blood,Urine Negative (Negative); Color,Urine Light Yellow; Glucose,Urine (UA) Negative (Negative); Ketones,Urine Negative (Negative); Leukocyte Esterase,Urine Small (Negative); Mucus,Urine Rare /hpf; Nitrite,Urine Negative (Negative); Protein,Urine Negative (Negative); RBC,Urine 3 /hpf (0-5); Specific Gravity,Urine 1.022 (1.001-1.035); Squamous Epithelial Cell,Urine 4 /hpf (0-4); Urobilinogen,Urine <2.0 mg/dL (<2.0); WBC,Urine 3 /hpf (0-5)
[2021-09-26 02:39] VITALS: TEMP 98.6
[2021-09-26 02:39] LABS: Basophils % (A) 0 %; Eosinophils # (A) 0.1 k/uL (0-0.7); Eosinophils % (A) 1 %; HCT 36.6 % (34.0-46.0); HGB 11.7 gm/dL (11.4-16.0); Hypochromasia Slight; Lymphocytes # (A) 1.5 k/uL (1.0-4.8); Lymphocytes % (A) 12 %; MCH 26.7 pg (25.0-35.0); MCV 83.5 fL (80.0-100.0); Mean Platelet Volume 7.2; Monocytes # (A) 0.5 k/uL (0-1.0); Monocytes % (A) 4 %; Neutrophils # (A) 10.1 k/uL (1.3-7.7); Neutrophils % (A) 82 %; Platelet Count 299 k/uL (150-450); RBC 4.39 m/uL (3.80-5.40); RDW 14.9 % (11.5-15.5); WBC 12.4 k/uL (3.8-10.6)
--- NOTE | 2021-09-26 02:40 | CT ---
EXAMINATION TYPE: CT abdomen wo con DATE OF EXAM: 09/26/2021 COMPARISON: 07/06/2009 HISTORY: fever, back pain, nausea CT DLP: 1744 mGycm Automated exposure control for dose reduction was used. Images obtained from the diaphragm to the floor the pelvis with no contrast. The lung bases are clear. No pleural effusion. Heart size is normal. No pericardial effusion. There are clips from cholecystectomy. Liver spleen stomach pancreas appear intact. The bile ducts are not dilated. There is no adrenal mass. Kidneys have normal size and contour. No hydronephrosis. Ureters are not di lated. There is no retroperitoneal adenopathy. Appendix is inferior and appears normal. The bladder d istends smoothly. There is small amount of low-density free fluid in the pelvis. Uterus is retroverte d. No pelvic mass. No inguinal hernia. There is no mesenteric edema. No ascites or free air. No sign of a bowel obstruction. Lumbar spine is intact. Bony pelvis is intact. The hip joints are intact. IMPRESSION: There is small amount of low-density fluid in the pelvis that could be physiologic. Otherwise negativ e CT scan of the abdomen and pelvis..
[2021-09-26 02:57] LABS: ALT 18 U/L (4-34); AST 25 U/L (14-36); African American GFR (CKD) >90 (>60 ml/min/1.73 sqM); Albumin 4.8 g/dL (3.5-5.0); Alkaline Phosphatase 68 U/L (38-126); Anion Gap 14 mmol/L; Blood Urea Nitrogen 16 mg/dL (7-17); Calcium 9.4 mg/dL (8.4-10.2); Carbon Dioxide 19 mmol/L (22-30); Chloride 103 mmol/L (98-107); Glucose 96 mg/dL (74-99); Non-African American GFR(CKD) >90 (>60 ml/min/1.73 sqM); Potassium 4.9 mmol/L (3.5-5.1); Sodium 136 mmol/L (137-145); Total Bilirubin 0.4 mg/dL (0.2-1.3)
[2021-09-26 03:01] VITALS: BP 104/57; RESP 18
[2021-09-26 03:36] VITALS: PULSE 89
== END 2021-09-26 03:37 | disposition home or self-care (01) ==
LOC: EC 22:41
DX: B34.9 Viral infection, unspecified (principal); M54.9 Dorsalgia, unspecified; D72.829 Elevated white blood cell count, unspecified; Z20.822 Contact with and (suspected) exposure to COVID-19; Z87.891 Personal history of nicotine dependence; Z90.49 Acquired absence of other specified parts of digestive tract; Z88.5 Allergy status to narcotic agent; Z87.440 Personal history of urinary (tract) infections
CPT/HCPCS: 99284 ×2; 96374 ×2; 96361 ×2; 36415; 80053; 83605; 85025; 81001; 87040; 87081; 87430; 87502; 87635; 71046; 74150; J1885

== ENCOUNTER 2022-12-21 03:32 | Emergency (ER) | payer OTHER ==
[2022-12-21 03:42] VITALS: TEMP 98.4
[2022-12-21] MEDS ORDERED: SODIUM CHLORIDE 0.9% 1,000 ML IV STA (04:37)
[2022-12-21] MEDS ORDERED: PROCHLORPERAZINE INJ 10 MG/2 ML VIAL IVP STA (04:37)
--- NOTE | 2022-12-21 04:37 | ED ---
Nausea/Vomiting/Diarrhea HPI - General Chief complaint: Nausea/Vomiting/Diarrhea Stated complaint: Diarrhea, Abdominal Pain Time Seen by Provider: 12/21/22 04:11 Source: patient, RN notes reviewed, old records reviewed Mode of arrival: ambulatory Limitations: no limitations - History of Present Illness Initial comments: This is a 32-year-old female to the emergency department for evaluation today. Patient resents today for evaluation regards to nausea vomiting diarrhea. Symptoms began after starting antibiotics today for bronchitis. Patient feels weak and dehydrated. No other complaints no fevers no travel history no sick contacts no blood in the vomit or stool MD complaint: nausea, vomiting, diarrhea -: hour(s) Description of Vomiting: food contents Description of Diarrhea: water Associated Abdominal Pain: Yes Location: diffuse Radiation: none Severity: moderate Severity scale (1-10): 4 Consistency: constant Improves with: none Worsens with: none Associated Symptoms: loss of appetite, nausea/vomiting, weakness - Related Data Home Medications Medication Instructions Recorded Confirmed Pedi Multivit No.25/Folic Acid 2 tab PO DAILY 04/14/16 04/17/16 [Flintstones Multivit Chew Tab] Previous Rx's Medication Instructions Recorded Acetaminophen-Codeine 300-30mg 1 - 2 each PO Q4HR PRN #40 tab 04/19/16 [Tylenol w/codeine #3] Ibuprofen [Motrin] 600 mg PO Q6HR PRN #40 tab 04/19/16 Pantoprazole [Protonix] 40 mg PO DAILY #10 tab 04/23/21 Allergies Allergy/AdvReac Type Severity Reaction Status Date / Time codeine Allergy Rash/Hives Verified 12/21/22 03:37 Review of Systems ROS Statement: Those systems with pertinent positive or pertinent negative responses have been documented in the HPI. ROS Other: All systems not noted in ROS Statement are negative. 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 Past Anesthesia/Blood Transfusion Reactions: No Reported Reaction Past Psychological History: No Psychological Hx Reported Smoking Status: Former smoker Past Alcohol Use History: None Reported Past Drug Use History: None Reported - Past Family History Mother Family Medical History: Deep Vein Thrombosis (DVT), GERD/Reflux, Hypertension, Thyroid Disorder Additional Family Medical History / Comment(s): anemia, hypothyroid Father Family Medical History: Hypertension, Sleep Apnea/CPAP/BIPAP General Exam Limitations: no limitations General appearance: alert, in no apparent distress Head exam: Present: atraumatic, normocephalic, normal inspection Eye exam: Present: normal appearance, PERRL, EOMI. Absent: scleral icterus, conjunctival injection, periorbital swelling ENT exam: Present: normal exam, mucous membranes moist Neck exam: Present: normal inspection. Absent: tenderness, meningismus, lymphadenopathy Respiratory exam: Present: normal lung sounds bilaterally. Absent: respiratory distress, wheezes, rales, rhonchi, stridor Cardiovascular Exam: Present: regular rate, normal rhythm, normal heart sounds. Absent: systolic murmur, diastolic murmur, rubs, gallop, clicks GI/Abdominal exam: Present: soft, normal bowel sounds. Absent: distended, tenderness, guarding, rebound, rigid Extremities exam: Present: normal inspection, full ROM, normal capillary refill. Absent: tenderness, pedal edema, joint swelling, calf tenderness Back exam: Present: normal inspection Neurological exam: Present: alert, oriented X3, CN II-XII intact Psychiatric exam: Present: normal affect, normal mood Skin exam: Present: warm, dry, intact, normal color. Absent: rash Course Vital Signs 12/21/22 12/21/22 03:34 05:26 Temperature 98.4 F Pulse Rate 120 H 102 H Respiratory 20 18 Rate Blood Pressure 96/67 117/74 O2 Sat by Pulse 99 98 Oximetry - Reevaluation(s) Reevaluation #1: 12/21/22 05:31 Medical record is reviewed Reevaluation #2: 12/21/22 05:32 Patient symptoms improved Reevaluation #3: 12/21/22 05:32 Patient informed results questions answered Reevaluation #4: 12/21/22 05:32 Was pt. sent in by a medical professional or institution (, PA, DIETITIAN CHIEF, urgent care, hospital, or fpc...) When possible be specific @ -no Did you speak to anyone other than the patient for history (EMS, parent, family, police, friend...)? What history was obtained from this source @ -no Did you review nursing and triage notes (agree or disagree)? Why? @ -agree Are old charts reviewed (outside hosp., previous admission, EMS record, old EKG, old radiological studies, urgent care reports/EKG's, fpc records)? Report findings @ -yes Differential Diagnosis (chest pain, altered mental status, abdominal pain women, abdominal pain men, vaginal bleeding, weakness, fever, dyspnea, syncope, head ache, dizziness, GI bleed, back pain, seizure, CVA, palpatations, mental health, musculoskeletal)? @ -prior EKG interpreted by me (3pts min.). @ -no X-rays interpreted by me (1pt min.). @ -no CT interpreted by me (1pt min.). @ -no U/S interpreted by me (1pt. min.). @ -no What testing was considered but not performed or refused? (CT, X-rays, U/S, labs)? Why? @ -none What meds were considered but not given or refused? Why? @ -none Did you discuss the management of the patient with other professionals (professionals i.e. , PA, DIETITIAN CHIEF, lab, RT, psych nurse, 7th grade social studies teacher, podiatrist, teacher, forward air controller/air officer, vocational case manager)? Give summary @ -no Was smoking cessation discussed for >3mins.? @ -no Was critical care preformed (if so, how long)? @ -no Were there social determinants of health that impacted care today? How? (Homelessness, low income, unemployed, alcoholism, drug addiction, trans portation, low edu. Level, literacy, decrease access to med. care, [place] [facility], rehab)? @ -none Was there de-escalation of care discussed even if they declined (Discuss DNR or withdrawal of care, Hospice)? DNR status @ -no What co-morbidities impacted this encounter? (DM, HTN, Smoking, COPD, CAD, Cancer, CVA, ARF, Chemo, Hep., AIDS, mental health diagnosis, sleep apnea, morbid obesity)? @ -none Was patient admitted / discharged? Hospital course, mention meds given and route, prescriptions, significant lab abnormalities, going to OR and other pertinent info. @ - 32 female to the emergency department for evaluation today. Patient presents today for evaluation regards to weakness dehydration nausea vomiting and diarrhea. Symptoms improved here in the ER patient feels well and can be discharged home Discharge Undiagnosed new problem with uncertain prognosis? @ -no Drug Therapy requiring intensive monitoring for toxicity (Heparin, Nitro, Insulin, Cardizem)? @ -no Were any procedures done? @ -no Diagnosis/symptom? @ -Nausea vomiting diarrhea and dehydration Acute, or Chronic, or Acute on Chronic? @ -Acute Uncomplicated (without systemic symptoms) or Complicated (systemic symptoms)? @ -Complicated Side effects of treatment? @ -no Exacerbation, Progression, or Severe Exacerbation? @ -exacerbation Poses a threat to life or bodily function? How? (Chest pain, [place], [place], pneumonia, PE, COPD, DKA, ARF, appy, cholecystitis, CVA, Diverticulitis, Homicidal, Suicidal, threat to staff... and all critical care pts) @ -yes Reevaluation #5: 12/21/22 05:32 Differential Weakness: Hypoglycemia, shock, sepsis, hyponatremia, anemia, infection, [place], ETOH, adverse medicine reaction, overdose, stroke, this is not meant to be an all-inclusive list. Medical Decision Making - Medical Decision Making 32 female to the emergency department for evaluation today. Patient Harjinder presents today for evaluation regards to weakness dehydration nausea vomiting and diarrhea. Symptoms improved here in the ER patient feels well and can be discharged home - Lab Data Result diagrams: 12/21/22 04:44 12/21/22 04:44 Lab Results 12/21/22 12/21/22 Range/Units 04:44 04:44 WBC 9.1 (3.8-10.6) k/uL RBC 4.42 (3.80-5.40) m/uL Hgb 11.5 (11.4-16.0) gm/dL Hct 36.2 (34.0-46.0) % MCV 81.7 (80.0-100.0) fL MCH 26.0 (25.0-35.0) pg MCHC 31.8 (31.0-37.0) g/dL RDW 15.1 (11.5-15.5) % Plt Count 278 (150-450) k/uL MPV 7.4 Neutrophils % 88 % Lymphocytes % 7 % Monocytes % 3 % Eosinophils % 1 % Basophils % 0 % Neutrophils # 8.1 H (1.3-7.7) k/uL Lymphocytes # 0.6 L (1.0-4.8) k/uL Monocytes # 0.3 (0-1.0) k/uL Eosinophils # 0.1 (0-0.7) k/uL Basophils # 0.0 (0-0.2) k/uL Sodium 138 (137-145) mmol/L Potassium 4.6 (3.5-5.1) mmol/L Chloride 108 H (98-107) mmol/L Carbon Dioxide 16 L (22-30) mmol/L Anion Gap 14 mmol/L BUN 12 (7-17) mg/dL Creatinine 0.70 (0.52-1.04) mg/dL Est GFR (CKD-EPI)AfAm >90 (>60 ml/min/1.73 sqM) Est GFR (CKD-EPI)NonAf >90 (>60 ml/min/1.73 sqM) Glucose 113 H (74-99) mg/dL Calcium 9.1 (8.4-10.2) mg/dL Phosphorus 3.0 (2.5-4.5) mg/dL Magnesium 1.6 (1.6-2.3) mg/dL Total Bilirubin 0.6 (0.2-1.3) mg/dL AST 23 (14-36) U/L ALT 17 (4-34) U/L Alkaline Phosphatase 71 (38-126) U/L Total Protein 7.6 (6.3-8.2) g/dL Albumin 4.2 (3.5-5.0) g/dL Disposition Clinical Impression: Dehydration, Gastroenteritis Disposition: HOME SELF-CARE Condition: Good Instructions (If sedation given, give patient instructions): Acute Nausea and Vomiting (ED), Acute Diarrhea (ED) Is patient prescribed a controlled substance at d/c from ED?: No Referrals: iMya Wilson MD [Primary Care Provider] - 1-2 days Time of Disposition: 05:30
[2022-12-21 05:09] LABS: Basophils % (A) 0 %; Eosinophils # (A) 0.1 k/uL (0-0.7); Eosinophils % (A) 1 %; HCT 36.2 % (34.0-46.0); HGB 11.5 gm/dL (11.4-16.0); Lymphocytes # (A) 0.6 k/uL (1.0-4.8); Lymphocytes % (A) 7 %; MCHC 31.8 g/dL (31.0-37.0); MCV 81.7 fL (80.0-100.0); Mean Platelet Volume 7.4; Monocytes # (A) 0.3 k/uL (0-1.0); Monocytes % (A) 3 %; Neutrophils # (A) 8.1 k/uL (1.3-7.7); Neutrophils % (A) 88 %; Platelet Count 278 k/uL (150-450); RBC 4.42 m/uL (3.80-5.40); RDW 15.1 % (11.5-15.5); WBC 9.1 k/uL (3.8-10.6)
[2022-12-21 05:20] LABS: ALT 17 U/L (4-34); AST 23 U/L (14-36); African American GFR (CKD) >90 (>60 ml/min/1.73 sqM); Albumin 4.2 g/dL (3.5-5.0); Alkaline Phosphatase 71 U/L (38-126); Anion Gap 14 mmol/L; Blood Urea Nitrogen 12 mg/dL (7-17); Calcium 9.1 mg/dL (8.4-10.2); Carbon Dioxide 16 mmol/L (22-30); Chloride 108 mmol/L (98-107); Glucose 113 mg/dL (74-99); Magnesium 1.6 mg/dL (1.6-2.3); Non-African American GFR(CKD) >90 (>60 ml/min/1.73 sqM); Potassium 4.6 mmol/L (3.5-5.1); Sodium 138 mmol/L (137-145); Total Bilirubin 0.6 mg/dL (0.2-1.3); Total Protein 7.6 g/dL (6.3-8.2)
[2022-12-21 05:48] VITALS: BP 117/74; PULSE 102; RESP 18
== END 2022-12-21 05:38 | disposition home or self-care (01) ==
LOC: EC 03:32
DX: E86.0 Dehydration (principal); K52.9 Noninfective gastroenteritis and colitis, unspecified; Z90.49 Acquired absence of other specified parts of digestive tract; Z87.891 Personal history of nicotine dependence; Z88.5 Allergy status to narcotic agent
CPT/HCPCS: 36415; 80053; 83735; 84100; 85025; 99284; 96374; 96361; J0780

== ENCOUNTER 2023-08-15 06:29 | Emergency (ER) | payer OTHER ==
[2023-08-15 07:09] LABS: Basophils % (A) 1 %; Eosinophils # (A) 0.2 k/uL (0-0.7); Eosinophils % (A) 2 %; HGB 11.7 gm/dL (11.4-16.0); Lymphocytes # (A) 2.6 k/uL (1.0-4.8); Lymphocytes % (A) 32 %; MCHC 31.5 g/dL (31.0-37.0); MCV 82.6 fL (80.0-100.0); Mean Platelet Volume 7.4; Monocytes # (A) 0.3 k/uL (0-1.0); Monocytes % (A) 4 %; Neutrophils # (A) 4.8 k/uL (1.3-7.7); Neutrophils % (A) 60 %; Platelet Count 356 k/uL (150-450); RBC 4.48 m/uL (3.80-5.40); RDW 15.1 % (11.5-15.5)
[2023-08-15 07:26] LABS: Partial Thromboplastin Time 24.7 sec (22.0-30.0); Prothrombin Time 10.7 sec (10.0-12.5)
[2023-08-15 07:35] LABS: ALT 15 U/L (4-34); AST 20 U/L (14-36); African American GFR (CKD) >90 (>60 ml/min/1.73 sqM); Albumin 4.4 g/dL (3.5-5.0); Alkaline Phosphatase 87 U/L (38-126); Anion Gap 11 mmol/L; Blood Urea Nitrogen 6 mg/dL (7-17); Calcium 9.5 mg/dL (8.4-10.2); Carbon Dioxide 20 mmol/L (22-30); Chloride 109 mmol/L (98-107); Glucose 99 mg/dL (74-99); Magnesium 1.8 mg/dL (1.6-2.3); Non-African American GFR(CKD) >90 (>60 ml/min/1.73 sqM); Potassium 3.8 mmol/L (3.5-5.1); Sodium 140 mmol/L (137-145); Total Bilirubin 0.6 mg/dL (0.2-1.3); Total Protein 7.5 g/dL (6.3-8.2)
[2023-08-15 07:39] VITALS: BP 125/85; PULSE 70; RESP 18; TEMP 99.3
[2023-08-15] MEDS: KETOROLAC 15 MG/ML 1 ML VIAL IVP STA (07:39)
--- NOTE | 2023-08-15 07:40 | ED ---
Chest Pain HPI - General Chief Complaint: Chest Pain Stated Complaint: Chest Pain Time Seen by Provider: 08/15/23 06:44 Source: patient, RN notes reviewed Mode of arrival: ambulatory Limitations: no limitations - History of Present Illness Initial Comments: 33-year-old female presents emergency department with chief complaint of chest discomfort. Patient states started last night sitting in the porch. States it hurts to move, take a deep breath. Patient states that the pain makes her feel nauseous and short of breath. Patient denies any prior lung disease. Patient denies history of hypertension hyperlipidemia or diabetes no trauma no rashes denies any abdominal pain no back pain. States pain does radiate towards her shoulder or arm. - Related Data Home Medications Medication Instructions Recorded Confirmed Pedi Multivit No.25/Folic Acid 2 tab PO DAILY 04/14/16 04/17/16 [Flintstones Multivit Chew Tab] Previous Rx's Medication Instructions Recorded Acetaminophen-Codeine 300-30mg 1 - 2 each PO Q4HR PRN #40 tab 04/19/16 [Tylenol w/codeine #3] Ibuprofen [Motrin] 600 mg PO Q6HR PRN #40 tab 04/19/16 Pantoprazole [Protonix] 40 mg PO DAILY #10 tab 04/23/21 Cyclobenzaprine [Flexeril] 10 mg PO TID PRN #15 tab 08/15/23 Ibuprofen [Motrin] 600 mg PO Q8HR PRN #20 tab 08/15/23 Allergies Allergy/AdvReac Type Severity Reaction Status Date / Time codeine Allergy Rash/Hives Verified 08/15/23 06:35 Review of Systems ROS Statement: Those systems with pertinent positive or pertinent negative responses have been documented in the HPI. ROS Other: All systems not noted in ROS Statement are negative. 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 Past Anesthesia/Blood Transfusion Reactions: No Reported Reaction Past Psychological History: No Psychological Hx Reported Smoking Status: Former smoker Past Alcohol Use History: None Reported Past Drug Use History: None Reported - Past Family History Mother Family Medical History: Deep Vein Thrombosis (DVT), GERD/Reflux, Hypertension, Thyroid Disorder Additional Family Medical History / Comment(s): anemia, hypothyroid Father Family Medical History: Hypertension, Sleep Apnea/CPAP/BIPAP General Exam Limitations: no limitations General appearance: alert, in no apparent distress Head exam: Present: atraumatic, normocephalic, normal inspection Neck exam: Present: normal inspection. Absent: tenderness, meningismus, lymphadenopathy Respiratory exam: Present: normal lung sounds bilaterally, chest wall tenderness. Absent: respiratory distress, wheezes, rales, rhonchi, stridor Cardiovascular Exam: Present: regular rate, normal rhythm, normal heart sounds. Absent: systolic murmur, diastolic murmur, rubs, gallop, clicks GI/Abdominal exam: Present: soft, normal bowel sounds. Absent: distended, tenderness, guarding, rebound, rigid Back exam: Absent: CVA tenderness (R), CVA tenderness (L) Neurological exam: Present: alert Course Vital Signs 08/15/23 08/15/23 06:35 07:38 Temperature 98.0 F 99.3 F Pulse Rate 93 70 Respiratory 19 18 Rate Blood Pressure 132/83 125/85 O2 Sat by Pulse 100 97 Oximetry Chest Pain MDM - MDM Was pt. sent in by a medical professional or institution (, PA, LADLE HANDLER, urgent care, hospital, or [facility]...) When possible be specific @ -No Did you speak to anyone other than the patient for history (EMS, parent, family, police, friend...)? What history was obtained from this source @ -No Did you review nursing and triage notes (agree or disagree)? Why? @ -I reviewed and agree with nursing and triage notes Were old charts reviewed (outside hosp., previous admission, EMS record, old EKG, old radiological studies, urgent care reports/EKG's, [facility] records)? Report findings @ -No old charts were reviewed Differential Diagnosis (chest pain, altered mental status, abdominal pain women, abdominal pain men, vaginal bleeding, weakness, fever, dyspnea, syncope, headache, dizziness, GI bleed, back pain, seizure, CVA, palpatations, mental health, musculoskeletal)? @ -Differential Chest Pain: Stable Angina, Unstable Angina, STEMI, NSTEMI Aortic Dissection, Pneumothorax, Musculoskeletal, Esophageal Spasm GERD, Cholecystitis, Pancreatitis, Zoster, this is not meant to be an all-inclusive list. EKG interpreted by me (3pts min.). @ -As above X-rays interpreted by me (1pt min.). @ -Chest x-ray shows no acute cardiopulmonary process. CT interpreted by me (1pt min.). @ -None done U/S interpreted by me (1pt. min.). @ -None done What testing was considered but not performed or refused? (CT, X-rays, U/S, labs)? Why? @ -None What meds were considered but not given or refused? Why? @ -None Did you discuss the management of the patient with other professionals (professionals i.e. , PA, LADLE HANDLER, lab, RT, psych nurse, mental health social worker, software program manager, teacher, radiation officer, caseworker protective services)? Give summary @ -No Was smoking cessation discussed for >3mins.? @ -No Was critical care preformed (if so, how long)? @ -No Were there social determinants of health that impacted care today? How? (Homelessness, low income, unemployed, alcoholism, drug addiction, transportation, low edu. Level, literacy, decrease access to med. care, intermediate, rehab)? @ -No Was there de-escalation of care discussed even if they declined (Discuss DNR or withdrawal of care, Hospice)? DNR status @ -No What co-morbidities impacted this encounter? (DM, HTN, Smoking, COPD, CAD, Cancer, CVA, ARF, Chemo, Hep., AIDS, mental health diagnosis, sleep apnea, morbid obesity)? @ -None Was patient admitted / discharged? Hospital course, mention meds given and route, prescriptions, significant lab abnormalities, going to OR and other pertinent info. @ -Discharge patient has reproducible chest wall pain, pain with movement. Patient did have a full workup including labs, EKG and chest x-ray negative D- dimer negative troponin patient feels improved will be discharged in stable condition return for as discussed. Undiagnosed new problem with uncertain prognosis? @ -No Drug Therapy requiring intensive monitoring for toxicity (Heparin, Nitro, Insulin, Cardizem)? @ -No Were any procedures done? @ -No Diagnosis/symptom? @ -Chest wall pain Acute, or Chronic, or Acute on Chronic? @ -Acute Uncomplicated (without systemic symptoms) or Complicated (systemic symptoms)? @ -complicated Side effects of treatment? @ -No Exacerbation, Progression, or Severe Exacerbation? @ -No Poses a threat to life or bodily function? How? (Chest pain, [place], [place], pneumonia, PE, COPD, DKA, ARF, appy, cholecystitis, CVA, Diverticulitis, Homicidal, Suicidal, threat to staff... and all critical care pts) @ -No Disposition Clinical Impression: Chest wall pain Disposition: HOME SELF-CARE Condition: Stable Instructions (If sedation given, give patient instructions): Chest Wall Pain (ED) Additional Instructions: Please return to the Emergency Department if symptoms worsen or any other kathy rns. Prescriptions: Cyclobenzaprine [Flexeril] 10 mg PO TID PRN #15 tab PRN Reason: Muscle Spasm Ibuprofen [Motrin] 600 mg PO Q8HR PRN #20 tab PRN Reason: Pain Is patient prescribed a controlled substance at d/c from ED?: No Referrals: Miya Wilson MD [Primary Care Provider] - 1-2 days Time of Disposition: 08:08
--- NOTE | 2023-08-15 07:40 | XR ---
EXAMINATION TYPE: XR chest 2V DATE OF EXAM: 08/15/2023 COMPARISON: 09/26/2021 TECHNIQUE: PA and lateral views submitted. HISTORY: Chest pain FINDINGS: The lungs are clear and there is no pneumothorax, pleural effusion, or focal pneumonia. Heart size normal and no overt failure. Osseous structures demonstrate hypertrophic and degenerative changes of the spine. IMPRESSION: 1. No acute process.
[2023-08-15] MEDS: ONDANSETRON 4 MG/2 ML VIAL IVP STA (07:41)
[2023-08-15] MEDS: ORPHENADRINE 30 MG/ML 2 ML VIAL IVP STA (07:44)
[2023-08-15] MEDS: HYDROmorphone 0.5 MG/0.5 ML SYRINGE IVP STA (08:16)
[2023-08-15] MEDS: traMADol 50 MG STARTER PACK 3 TAB BTL PO STA (08:17)
== END 2023-08-15 08:21 | disposition home or self-care (01) ==
LOC: EC 06:29
DX: R07.89 Other chest pain (principal); Z88.5 Allergy status to narcotic agent; Z87.891 Personal history of nicotine dependence
CPT/HCPCS: 36415; 93005; 85379; 80053; 83735; 84484; 85025; 85610; 85730; 71046; 99285; 96374; 96375 ×3; J2360; J2405; J1885; J1170